=== PATIENT | female | born 1970 | race Two or more races ===

== ENCOUNTER 2016-07-04 23:43 | Emergency (ER) | payer OTHER ==
[2016-07-05] MEDS ORDERED: ONDANSETRON 4 MG ODT TAB ONE ×2 (00:15→01:21)
[2016-07-05] MEDS ORDERED: MAALOX/LIDO2%VISC/SIMETHICONE 40 ML BOT ONE (01:22)
[2016-07-05] MEDS ORDERED: KETOROLAC TROMETHAMINE 60 MG/2 ML VIAL ONE (02:05)
[2016-07-05] MEDS ORDERED: METOCLOPRAMIDE HCL 5 MG/ML 2ML VIAL ONE (02:05)
== END 2016-07-05 02:25 | disposition home or self-care (01) ==
LOC: ED 23:43
DX: K29.70 Gastritis, unspecified, without bleeding (principal); J45.909 Unspecified asthma, uncomplicated; E11.9 Type 2 diabetes mellitus without complications; Z79.84 Long term (current) use of oral hypoglycemic drugs
CPT/HCPCS: 99283 ×2; 96372 ×2; A9270 ×3; J2765; J1885